=== PATIENT | female | born 1985 | race Caucasian/White ===

== ENCOUNTER 2022-04-14 16:13 | Emergency (ER) | payer MEDICAID ==
[~2022-04-14] VITALS: Ht 165.1 cm; Wt 83.0 kg
[2022-04-14 16:43] VITALS: BP 138/74
[2022-04-14] MEDS ORDERED: LIDOCAINE 2%/EPI 1:100,000 inj. Multi-dose 20 ML VIAL IJ ONE (17:10)
[2022-04-14] MEDS ORDERED: TETanus/Pertussis (Acell)/Diphther VAC/PF (Tdap-Adult) 0.5ml syringe IMVAC ONE (17:10)
[2022-04-14] MEDS ORDERED: bacitracin 15gm ointment TP ONE (17:10)
== END 2022-04-14 17:55 | disposition home or self-care (01) ==
LOC: ER 16:13
DX: S61.211A Laceration without foreign body of left index finger without damage to nail, initial encounter (principal); Z88.1 Allergy status to other antibiotic agents; W45.8XXA Other foreign body or object entering through skin, initial encounter; Y93.E9 Activity, other interior property and clothing maintenance; Y92.89 Other specified places as the place of occurrence of the external cause; Y99.8 Other external cause status
CPT/HCPCS: 12001; 90471; 90715; 99283; J7030; A6449